=== PATIENT | male | born 1975 | race Caucasian/White ===

== ENCOUNTER 2016-11-20 18:23 | Emergency (ER) | payer OTHER ==
[~2016-11-20 18:23] MED LIST: KEPPRA500 M1; NO MEDICATIONS
== END 2016-11-20 19:19 | disposition home or self-care (01) ==
LOC: SED 18:23
DX: S61.411A Laceration without foreign body of right hand, initial encounter (principal); F17.200 Nicotine dependence, unspecified, uncomplicated; X58.XXXA Exposure to other specified factors, initial encounter; Y92.009 Unspecified place in unspecified non-institutional (private) residence as the place of occurrence of the external cause
CPT/HCPCS: 12002; 12004; 99283

== ENCOUNTER 2016-12-28 14:59 | Emergency (ER) | payer OTHER ==
[2016-12-28] MEDS ORDERED: KEPPRA100 MG/ML (15:09)
== END 2016-12-28 18:04 | disposition home or self-care (01) ==
LOC: SED 14:59
DX: T40.1X1A Poisoning by heroin, accidental (unintentional), initial encounter (principal); Z86.19 Personal history of other infectious and parasitic diseases; F17.200 Nicotine dependence, unspecified, uncomplicated
CPT/HCPCS: 99282